=== PATIENT | male | born 1965 | race Caucasian/White ===

== ENCOUNTER 2021-11-26 18:31 | Emergency (ER) | payer OTHER, SELFPAY ==
--- NOTE | ~2021-11-26 | XR_ITS ---
EXAMINATION: XR chest 2V DATE: 11/26/2021 19:17 INDICATION: Shortness of breath with exertional chest tightness TECHNIQUE: PA and lateral views of the chest were obtained. 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 No other airspace opacities, pulmonary edema, pleural effusion or pneumothorax. The card iomediastinal silhouette is normal. There are bridging osteophytes at multiple levels in the spine, c onsistent with diffuse idiopathic skeletal hyperostosis (DISH). IMPRESSION: 1. No acute cardiopulmonary disease. Reviewed, dictated and finalized at location A.
--- NOTE | 2021-11-26 18:39 | ECG_ITS ---
Measurements Intervals [place] Rate: 80 P: 54 SC: 160 QRS: 56 QRSD: 97 T: 33 QT: 389 QTc: 449 Interpretive Statements SINUS RHYTHM NONSPECIFIC T-WAVE ABNORMALITY NO PREVIOUS ECG AVAILABLE FOR COMPARISON Electronically Signed On 11-27-2021 7:16:22 CDT by Joseph Vasquez M.D.
[2021-11-26 18:46] VITALS: BP 150/98; PULSE 83; RESP 18; TEMP 36.7; O2SAT 98
[2021-11-26 20:23] LABS: Basophils Percent Auto 0.4 % (0.2-1.2); Eosinophils Absolute Auto 0.2 K/mm3 (0-0.3); Hematocrit 45.6 % (42.0-52.0); Hemoglobin 14.5 g/dL (14.0-18.0); Immature Granulocyte Absolute 0.02 K/mm3 (0.00-0.031); Immature Granulocyte Percent A 0.3 % (0-0.5); Lymphocytes Absolute Auto 2.45 K/mm3 (0.9-3.2); Lymphocytes Percent Auto 33.9 % (18.3-44.2); Mean Corpuscular HGB Conc 31.8 g/dl (32-36); Mean Corpuscular Hemoglobin 26.3 pg (26-34); Mean Corpuscular Volume 82.8 fl (80-100); Mean Platelet Volume 9.1 fl (7.4-10.4); Monocytes Absolute Auto 0.9 K/mm3 (0.1-0.6); Monocytes Percent Auto 12.7 % (2.6-8.5); Neutrophils Absolute Auto 3.6 K/mm3 (1.3-6.7); Neutrophils Percent Auto 49.7 % (45.5-73.1); Platelet Count Result 249 k/mm3 (150-375); Red Blood Count 5.51 M/mm3 (4.6-6.20); Red Cell Distribution Width 13.4 % (11.5-14.5); White Blood Count 7.2 K/mm3 (4.5-10.0)
[2021-11-26 20:37] LABS: Alanine Aminotransferase 61 U/L (6-50); Alkaline Phosphatase 49 U/L (38-126); Anion Gap 11 mmol/L (8-16); Aspartate Amino Transferase 73 U/L (17-59); Bilirubin,Total 0.7 mg/dL (0.2-1.3); Blood Urea Nitrogen 14 mg/dL (9-20); Calcium 9.4 mg/dL (8.4-10.2); Carbon Dioxide 27 mmol/L (22-30); Chloride 102 mmol/L (98-107); Estimated CRCL calculation 99 ml/min; Estimated Glomerular Filt Rate > 60; Glucose 114 mg/dL (65-110); Sodium 140 mmol/L (137-145)
[2021-11-26 20:55] VITALS: BP 170/97; PULSE 67; RESP 19; O2SAT 96
[2021-11-26 20:56] VITALS: PULSE 65
--- NOTE | 2021-11-26 21:08 | ED.GENADULT ---
HPI - General Adult General Chief complaint: Shortness of Breath/Dyspnea Stated complaint: SOB Time Seen by Provider: 11/26/21 20:37 History of Present Illness HPI narrative: This is a 56-year-old male with history of hypertension presented the ED with several weeks of chest fluttering and heaviness. Patient says that it has been coming on and off. Does not radiate. It is not painful. that comes and goes and typically resolves and 5 minutes before. Patient has never experienced this before. There are no exacerbating or alleviating factors. Patient does say it occurs during exertion.. He denies vomiting or radiation to any extremity. Denies URI symptoms or lower, lower extremity edema, history of blood clots recent surgery or cancer. Patient has no history of heart failure that he is aware of. Patient is vaccinated against COVID. Related Data Allergies Allergy/AdvReac Type Severity Reaction Status Date / Time No Known Allergies Allergy Verified 11/26/21 18:33 Review of Systems Review of Systems: CONSTITUTIONAL: Denies night sweats. EYES: No eye pain ENT: Denies rhinorrhea CARDIOVASCULAR: Denies palpitations RESPIRATORY: Denies hemoptysis GASTROINTESTINAL: Denies hematemesis GENITOURINARY: Denies hematuria. SKIN: Denies rash MUSCULOSKELETAL: Denies myalgia. NEUROLOGIC: Denies weakness. PSYCHIATRIC: Denies delusions PMFSH Past Medical History Medical History (Updated 11/26/21 @ 23:45 by Bernabe Alonzo MD) HTN (hypertension) Surgical History Surgical History (Updated 11/26/21 @ 21:11 by Bernabe Alonzo MD) Hx of hernia repair Social History Social History (Updated 11/26/21 @ 21:11 by Bernabe Alonzo MD) Social History: Patient drinks alcohol occasionally, denies tobacco or illici Exam Narrative: APPEARANCE: No apparent distress. patient appears healthy and robust. Head atraumatic. EYES: PERRLA/EOMI, NOSE: Normal no drainage NECK: Supple, Trachea midline RESPIRATORY: CTAB, No increased work of breathing. CARDIOVASCULAR: S1S2 appreciated No peripheral edema ABDOMINAL: Soft, nontender, nondistended, MUSCULOSKELETAl: No obvious deformities NEURO: Alert. Moving 4/4 extremities SKIN:: Warm, dry. Normal color PSYCHIATRIC: Normal affect Course Vital Signs Vital signs: Vital Signs Temperature 98.1 F 11/26/21 18:46 Pulse Rate 83 08/05/22 18:46 Respiratory Rate 18 11/26/21 18:46 Blood Pressure 150/98 H 11/26/21 18:46 Pulse Oximetry 98 11/26/21 18:46 Temperature 98.1 F 11/26/21 18:46 Pulse Rate 66 11/26/21 21:09 Respiratory Rate 15 11/26/21 21:09 Blood Pressure 148/90 H 11/26/21 21:09 Pulse Oximetry 95 11/26/21 21:09 Oxygen Delivery Room Air 11/26/21 20:55 Medical Decision Making MDM Narrative Medical decision making narrative: this is a 56-year-old male presents in with intermittent chest heaviness and fluttering over the last several weeks. Patient has several risk factors for ACS. Chest pain workup including lab work EKG and chest x-ray has been ordered. EKG interpretation: Rhythm sinus, Rate [place], [place] -normal, [place] -normal, QRS narrow, QTC normal, T waves -negative for concerning inversions, ST Segments - Negative for concerning elevations Final interpretations: normal sinus rhythm, no STEMI Patient's lab work was unremarkable. Troponin and BNP were within normal levels. Patient has a heart score of 3. . HEART Score for Major Cardiac Events from [employer] [place] [employer] on 11/26/2021 All calculations should be rechecked by clinician prior to use RESULT SUMMARY: 3 points Low Score (0-3 points) Risk of MACE of 0.9-1.7%. INPUTS: History ?> 1 = Moderately suspicious EKG ?> 0 = Normal Age ?> 1 = 45-64 Risk factors ?> 1 = 1-2 risk factors Initial troponin ?> 0 = <=normal limit Patient's EKGs and labs are reviewed without significant high risk changes. Cardiac risk factors reviewed. Heart score is <4 and it iss reasonable
[2021-11-26 21:09] VITALS: BP 148/90; PULSE 66; RESP 15; O2SAT 95
[2021-11-26 21:31] LABS: NT Pro B Type Natriuretic Pept 96 pg/mL (5-100); Troponin I < 0.012 ng/mL (0.000-0.034)
[2021-11-26 23:08] LABS: Troponin I < 0.012 ng/mL (0.000-0.034)
[2021-11-26 23:35] VITALS: PULSE 60; RESP 18; O2SAT 95
[2021-11-26 23:51] VITALS: BP 155/86; PULSE 61; RESP 19; O2SAT 96
== END 2021-11-26 23:59 | disposition home or self-care (01) ==
PROVIDERS: Emergency Medicine; Emergency Provider Emergency Medicine
DX: R07.9 Chest pain, unspecified (principal); I10 Essential (primary) hypertension; R94.31 Abnormal electrocardiogram [ECG] [EKG]
CPT/HCPCS: 36415; 71046; 80053; 83880; 84484; 85025; 93005; 99284